=== PATIENT | female | born 1945 | race African-American/Black ===

== ENCOUNTER 2020-12-01 04:47 | Day surgery (SDC) | payer OTHER, BC ==
[2020-11-30 13:18] VITALS: BMI 38.8
[2020-12-01 10:27] VITALS: TEMP 98
[2020-12-01 11:12] VITALS: BP 141/81; PULSE 61
== END 2020-12-01 11:30 | disposition home or self-care (01) ==
LOC: JASU-ENDO 04:47
PROVIDERS: ATTEND Internal Medicine Gastroenterology
PROC: 0DJD8ZZ Inspection of Lower Intestinal Tract, Via Natural or Artificial Opening Endoscopic (ICD-10-PCS; principal; 2020-12-01 10:00)
DX: Z12.11 Encounter for screening for malignant neoplasm of colon (principal); K55.21 Angiodysplasia of colon with hemorrhage; K57.30 Diverticulosis of large intestine without perforation or abscess without bleeding; K57.31 Diverticulosis of large intestine without perforation or abscess with bleeding; K63.89 Other specified diseases of intestine; Z86.010 Personal history of colon polyps; Z80.0 Family history of malignant neoplasm of digestive organs; I25.10 Atherosclerotic heart disease of native coronary artery without angina pectoris; I10 Essential (primary) hypertension

== ENCOUNTER 2021-11-19 11:54 | Emergency (ER) | payer OTHER, BC ==
[2021-11-19 12:24] VITALS: BMI 37.9
[2021-11-19] MEDS ORDERED: BEBTELOVIMAB (EUA) 175 MG/2 ML VIAL IVPUSH ONE (14:54)
[2021-11-19 17:05] VITALS: BP 124/66; PULSE 86; TEMP 98.9
== END 2021-11-19 17:05 | disposition home or self-care (01) ==
LOC: JCOVINFU 11:54
DX: U07.1 COVID-19 (principal)
CPT/HCPCS: 0241U-QW; 71046-TC-FY; 99284-25; M0222; Q0222

== ENCOUNTER 2023-08-18 14:20 | Emergency (ER) | payer OTHER, BC ==
[2023-08-18 14:33] VITALS: BP 141/60; PULSE 72; RESP 18; TEMP 98; BMI 37.3
== END 2023-08-18 19:09 | disposition home or self-care (01) ==
LOC: JERFT 14:20
DX: S80.01XA Contusion of right knee, initial encounter (principal); S70.01XA Contusion of right hip, initial encounter; W10.8XXA Fall (on) (from) other stairs and steps, initial encounter
CPT/HCPCS: 70450-TC; 73502-TC-RT-FY; 73562-TC-RT-FY; 99284-25

== ENCOUNTER → 2023-08-18 | Emergency (ER) | payer OTHER, BC | LOC: FER 13:51 | DX: M25.561 Pain in right knee (principal); W10.9XXA Fall (on) (from) unspecified stairs and steps, initial encounter | CPT/HCPCS: 99281-25 ==